=== PATIENT | female | born 1980 | race Caucasian/White ===

== ENCOUNTER → 2017-08-31 | Outpatient (CLI) | payer OTHER | END | disposition home or self-care (01) | LOC: LABWHC1 09:15 | PROVIDERS: ATTEND Obstetrics & Gynecology | DX: Z34.80 Encounter for supervision of other normal pregnancy, unspecified trimester (principal); Z3A.00 Weeks of gestation of pregnancy not specified | CPT/HCPCS: 36415; 84702 ==

== ENCOUNTER → 2017-09-01 | Outpatient (CLI) | payer OTHER ==
--- NOTE | 2017-09-01 14:03 | US ---
EXAMINATION TYPE: US OB <= 14 wk fetus DATE OF EXAM: 09/01/2017 COMPARISON: NONE CLINICAL HISTORY: O46.91 BLEEDING,SPOTTING. EXAM PERFORMED: Transabdominal (TA) EXAM MEASUREMENTS: GESTATIONAL AGE / DATING Physician Established: not established Dates by LMP: (7 weeks/2 days) EDC: 04/18/2018 Dates by First Scan: this is first scan Dates by Current Scan for: (7 weeks/3 days) EDC: 04/17/2018 MATERNAL ANATOMY Uterus: 11.7 x 5.9 x 7.4 cm Right Ovary: 3.5 x 2.9 x 1.8 cm Left Ovary: 3.4 x 2.7 x 1.7 cm Post CDS / Adnexa: wnl Presence of free fluid: no free fluid Presence of corpus luteal cyst: rt ovary measures 1.7 x 2.0 x 1.3 cm Presence of subchorionic bleed: Very small approximately 5% of the gestational sac diameter GESTATION / SURVEY CRL: 1.2 cm (7 weeks/3 days) Yolk Sac (normal less than 6mm): 0.4 cm Heart Rate: 152 bpm Rhythm: Normal IUP: Live IUP Date of LMP: 07/12/2017 Live IUP that correlates with LMP. IMPRESSION: 1. Small subchorionic hemorrhage approximately 5% of the gestational sac diameter. 2. Single live intrauterine with a sonographic age of 7 weeks and 3 days and estimated da te of delivery of 04/17/2018, concordant with menstrual age.
== END | disposition home or self-care (01) ==
LOC: RADUSWWP 13:02
PROVIDERS: ATTEND Obstetrics & Gynecology
DX: O46.91 Antepartum hemorrhage, unspecified, first trimester (principal); Z3A.01 Less than 8 weeks gestation of pregnancy
CPT/HCPCS: 76801

== ENCOUNTER 2018-04-13 08:00 | Inpatient (IN) | payer OTHER ==
--- NOTE | 2018-04-17 09:56 | P.HPOB ---
History of Present Illness H&P Date: 04/17/18 Chief Complaint: Induction of labor This is a 37-year-old female 4 para 2 with an estimated date of confinement of 04/18/2018, estimated gestational age of 40-0/7 weeks, who presents to labor and delivery for induction of labor. course has been essentially uncomplicated. Baby was noted to be transverse at 37 weeks however at 38 weeks baby was noted to be in the vertex presentation. She admits to good movement and denies any rupture of membranes. labs: Toxoplasma-negative Random glucose-86 Hepatitis B surface antigen-negative Rubella-immune Blood type-O+ Antibody screen-negative RPR-nonreactive HIV-nonreactive Hemoglobin-14.3 GC/chlamydia-negative One hour Glucola-66 Group B streptococcus-negative Obstetrical history: . History of 2 vaginal deliveries at term. Her second delivery was a vacuum extraction for a 9 lbs. 1 oz. . She has a history of 1 miscarriage that did not require D&C. Gynecologic history: No history of sexual transmitted diseases. Social history: She is engaged. She is not working outside of the home. Review of Systems Constitutional: Denies chills, Denies fever Eyes: denies blurred vision, denies pain Ears, nose, mouth and throat: Denies headache, Denies sore throat Cardiovascular: Denies chest pain, Denies shortness of breath Respiratory: Denies cough Gastrointestinal: Reports abdominal pain (Irregular contractions) Genitourinary: Reports pelvic pain, Reports Integumentary: Denies pruritus, Denies rash Neurological: Denies numbness, Denies weakness Past Medical History Past Medical History: No Reported History Additional Past Surgical History / Comment(s): LEEP-2003 Past Psychological History: No Psychological Hx Reported Smoking Status: Current every day smoker Past Alcohol Use History: None Reported Past Drug Use History: None Reported Medications and Allergies Home Medications Medication Instructions Recorded Confirmed Type Pnv,Calcium 72/Iron/Folic Acid 1 each PO 04/17/18 History [ Plus Tablet] Allergies Allergy/AdvReac Type Severity Reaction Status Date / Time No Known Allergies Allergy Verified 04/17/18 09:53 Exam Osteopathic Statement: *. No significant issues noted on an osteopathic structural exam other than those noted in the History and Physical/Consult. HEENT: Within normal limits line heart: Regular rate and rhythm Lungs: Clear to auscultation bilaterally Abdomen: , nontender Cervix: 1-1/2 cm/70%/-2 heart tones: 120s by Doppler Extremities: Negative Homans Assessment and Plan (1) 40 weeks gestation of Status: Acute Code(s): Z3A.40 - 40 WEEKS GESTATION OF SNOMED Code( s): 97082638 (2) Advanced maternal age (AMA) in Status: Acute Code(s): URC5233 - SNOMED Code(s): 595789051 Plan: Proceed with oxytocin induction of labor. Expectant management. Epidural anesthesia if desired.
[2018-04-18] MEDS ORDERED: METHYLERGONOVINE 0.2 MG/ML 1 ML AMP IM PRN (06:39)
[2018-04-18] MEDS ORDERED: OXYTOCIN 10 UNIT/ML 1 ML VIAL IM PRN (06:39)
[2018-04-18] MEDS ORDERED: TERBUTALINE 1 MG/ML VIAL SQ PRN (06:39)
[2018-04-18] MEDS ORDERED: CARBOPROST TROMETHAMINE 250 MCG/ML 1 ML AMP IM PRN (06:39)
[2018-04-18] MEDS ORDERED: LIDOCAINE 1% 20 ML VIAL (10MG/ML) FOR IV START INTRADERMA PRN (06:39)
[2018-04-18] MEDS ORDERED: LIDOCAINE 0.5% (PF) 5 MG/ML (50 ML SDV) SQ PRN (06:39)
[2018-04-18] MEDS ORDERED: OXYTOCIN 20 UNITS/1000 ML NS 1,000 ML IV SCH ×2 (06:39→16:57)
[2018-04-18 07:00] VITALS: BMI 27.2
[2018-04-18] MEDS: LACTATED RINGERS 1,000 ML IV SCH ×3 (07:01→15:09)
[2018-04-18 07:21] LABS: Basophils % (A) 0 %; Eosinophils # (A) 0.1 k/uL (0-0.7); Eosinophils % (A) 1 %; HCT 37.5 % (34.0-46.0); HGB 12.9 gm/dL (11.4-16.0); Lymphocytes # (A) 1.8 k/uL (1.0-4.8); Lymphocytes % (A) 19 %; MCH 31.8 pg (25.0-35.0); MCHC 34.4 g/dL (31.0-37.0); MCV 92.5 fL (80.0-100.0); Mean Platelet Volume 7.7; Monocytes # (A) 0.4 k/uL (0-1.0); Monocytes % (A) 5 %; Neutrophils # (A) 6.8 k/uL (1.3-7.7); Neutrophils % (A) 74 %; Platelet Count 160 k/uL (150-450); RBC 4.05 m/uL (3.80-5.40); RDW 13.7 % (11.5-15.5); WBC 9.2 k/uL (3.8-10.6)
[2018-04-18] MEDS ORDERED: ROPIVACAINE 100 MG, fentaNYL (PF) 200 MCG in SODIUM CHLORIDE 0.9% 76 ML EPIDURAL ONE (11:49)
--- NOTE | 2018-04-18 16:47 | P.PROBDLV ---
Vaginal Delivery Note - . Vaginal Delivery Note: The patient progressed to complete dilation after oxytocin induction of labor and artificial rupture membranes with clear fluid noted. She did receive epidural anesthesia. Once reaching complete dilation, she began pushing. Infant's head came to a crown and then delivered and a straight OPD position across the perineum along with the anterior arm. Nose and mouth were bulb suctioned. With one further push, the delivered reducing the nuchal cord times one around the body with delivery. Nose and mouth are bulb suctioned after delivery and infant was placed on mother's abdomen. Cord was clamped and cut and was taken to warmer for evaluation. A viable male was noted with scores of 8 at 1 minute and 9 at 5 minutes and infant weight was 8 lbs. 3 oz. Placenta delivered shortly thereafter, intact, with a three-vessel cord. Uterus contracted well after oxytocin was given and uterine massage was carried out. Inspection the perineum revealed a small first -degree perineal laceration. This area was anesthetized with 1% lidocaine and then sutured with 3-0 Vicryl suture in a running locked fashion. Estimated blood loss is approximately 150 mL's. Both mother and are in stable condition.
[2018-04-18] MEDS ORDERED: diphenhydrAMINE 50 MG/ML 1 ML VIAL IVP PRN ×2 (16:57)
[2018-04-18] MEDS ORDERED: ZOLPIDEM 5 MG TAB PO PRN (16:57)
[2018-04-18] MEDS ORDERED: LANOLIN CREAM 5 GM TUBE TOPICAL PRN (16:57)
[2018-04-18] MEDS ORDERED: BENZOCAINE/MENTHOL SPRAY 1 GM/SPRAY AEROSOL TOPICAL PRN (16:57)
[2018-04-18] MEDS ORDERED: WITCH HAZEL 1 EACH MED..PAD TOPICAL PRN (16:57)
[2018-04-18] MEDS ORDERED: diphenhydrAMINE 50 MG CAP PO PRN (16:57)
[2018-04-18] MEDS ORDERED: diphenhydrAMINE 25 MG CAP PO PRN (16:57)
[2018-04-18] MEDS ORDERED: HYDROCORTISONE 2.5% RECTAL CREAM 30 GM TUBE RECTAL PRN (16:57)
[2018-04-18] MEDS ORDERED: SIMETHICONE 80 MG CHEWABLE PO PRN (16:57)
[2018-04-18] MEDS: SENNOSIDES-DOCUSATE SODIUM 1 EACH TAB PO SCH (20:51)
[2018-04-18] MEDS: IBUPROFEN 600 MG TAB PO PRN (20:51)
[2018-04-19] MEDS: IBUPROFEN 600 MG TAB PO PRN ×3 (03:23→15:03)
[2018-04-19] MEDS: ACETAMINOPHEN TAB 325 MG TAB PO PRN ×3 (03:24→12:07)
[2018-04-19 03:41] VITALS: TEMP 97.9
[2018-04-19] MEDS: SENNOSIDES-DOCUSATE SODIUM 1 EACH TAB PO SCH (08:04)
--- NOTE | 2018-04-19 08:56 | P.DS ---
Providers Date of admission: 04/18/18 06:25 Expected date of discharge: 04/19/18 Attending physician: Vijaya Melgar Primary care physician: Stated None - Discharge Diagnosis(es) (1) 40 weeks gestation of Current Visit: No Status: Acute (2) Advanced maternal age (AMA) in Current Visit: No Status: Acute Hospital Course: This is a 37-year-old female 4 para 2 at 40-0/7 weeks who presented for induction of labor. She underwent oxytocin induction of labor and delivered vaginally a viable male on 04/18/2018 with scores of 8 at 1 minute and 9 at 5 minutes and infant weight of 8 lbs. 3 oz. Her course has been essentially uncomplicated. She is breast-feeding. Lochia is decreasing. Pain is fairly well controlled with ibuprofen and Tylenol. Vital signs are stable. Abdomen is soft with fundus firm and nontender. Extremities show negative Homans. Impression is status post vaginal delivery day #1. Plan is to discharge home today. Routine instructions are given. She has a breast pump at home. She will be given a prescription for ibuprofen. She is advised to follow up in the office in 6 weeks for a check. She is advised to call the office if she has any further questions or concerns prior to her appointment time. Procedures: Oxytocin induction of labor Spontaneous vaginal delivery of a viable male on 04/18/2018 Patient Condition at Discharge: Stable Plan - Discharge Summary New Discharge Prescriptions: New Ibuprofen [Motrin] 600 mg PO Q6HR PRN #60 tab PRN Reason: Mild Pain Or Fever >= 100.5 Continue Pnv,Calcium 72/Iron/Folic Acid [ Plus Tablet] 1 each PO DAILY Discharge Medication List Pnv,Calcium 72/Iron/Folic Acid [ Plus Tablet] 1 each PO DAILY 04/17/18 [ History] Ibuprofen [Motrin] 600 mg PO Q6HR PRN #60 tab 04/19/18 [Rx] Follow up Appointment(s)/Referral(s): Vijaya Melgar DO [Doctor of Osteopathic Medicine] - 6 Weeks Activity/Diet/Wound Care/Special Instructions: Instructions 1. Do not begin any exercise program for 3 weeks. 2. Do not resume sexual relations for 3 weeks or longer if uncomfortable. 3. You may take tub baths or showers at any time. 4. You may use tampons if desired after 3 weeks. 5. Keep the area of episiotomy (stitches) clean and dry. 6. If you are not nursing, wear a good fitting, supportive bra during the day and limit fluid intake for at least 1 week to prevent breast engorgement. 7. Call the office, [phone], within the next week to make appointment for your 6 week checkup if it has not already been made. 8. Report any of the following occurrences to the doctor promptly: a. Heavy, excessive bleeding b. Chills, fever c. Burning or frequency of urination d. Pain or redness and breasts if nursing e. Increasing pain or swelling in episiotomy (stitches). In addition to the above instructions, the following additional should be followed: 1. No heavy lifting or straining (exercising) until after 6 week checkup. 2. Keep abdominal incision clean and dry: You may wear a dressing if more comfortable. 3. Make office appointment for 10 days after going home or as instructed by her doctor. Discharge Disposition: HOME SELF-CARE
[2018-04-19 09:17] VITALS: BP 92/68; PULSE 70
[2018-04-19 09:56] LABS: Basophils % (A) 0 %; Eosinophils # (A) 0.1 k/uL (0-0.7); Eosinophils % (A) 1 %; HCT 32.8 % (34.0-46.0); HGB 11.5 gm/dL (11.4-16.0); Lymphocytes # (A) 1.4 k/uL (1.0-4.8); Lymphocytes % (A) 14 %; MCH 32.2 pg (25.0-35.0); MCHC 35.1 g/dL (31.0-37.0); Mean Platelet Volume 8.2; Monocytes # (A) 0.5 k/uL (0-1.0); Monocytes % (A) 5 %; Neutrophils # (A) 7.7 k/uL (1.3-7.7); Neutrophils % (A) 79 %; Platelet Count 143 k/uL (150-450); RBC 3.57 m/uL (3.80-5.40); RDW 13.8 % (11.5-15.5); WBC 9.7 k/uL (3.8-10.6)
[2018-04-19 18:24] VITALS: RESP 18
== END 2018-04-19 17:15 | disposition home or self-care (01) | DRG 807 ==
LOC: 4FBP 04-18 06:25
PROVIDERS: ADMIT Obstetrics & Gynecology; ATTEND Obstetrics & Gynecology
PROC: 10E0XZZ Delivery of Products of Conception, External Approach (ICD-10-PCS; principal; 2018-04-18)
PROC: 0HQ9XZZ Repair Perineum Skin, External Approach (ICD-10-PCS; 2018-04-18)
PROC: 10907ZC Drainage of Amniotic Fluid, Therapeutic from Products of Conception, Via Natural or Artificial Opening (ICD-10-PCS; 2018-04-18)
PROC: 3E033VJ Introduction of Other Hormone into Peripheral Vein, Percutaneous Approach (ICD-10-PCS; 2018-04-18)
PROC: 00HU33Z Insertion of Infusion Device into Spinal Canal, Percutaneous Approach (ICD-10-PCS; 2018-04-18)
PROC: 3E0R3BZ Introduction of Anesthetic Agent into Spinal Canal, Percutaneous Approach (ICD-10-PCS; 2018-04-18)
DX: O69.81X0 Labor and delivery complicated by cord around neck, without compression, not applicable or unspecified (principal); Z37.0 Single live birth; O99.334 Smoking (tobacco) complicating childbirth; F17.200 Nicotine dependence, unspecified, uncomplicated; O70.0 First degree perineal laceration during delivery; Z3A.40 40 weeks gestation of pregnancy
CPT/HCPCS: 85025; 86850; 86900; 86901

== ENCOUNTER → 2018-08-22 | Outpatient (CLI) | payer OTHER | END | disposition home or self-care (01) | LOC: LABWHC1 10:41 | PROVIDERS: ATTEND Obstetrics & Gynecology | DX: N92.6 Irregular menstruation, unspecified (principal) | CPT/HCPCS: 36415; 84702 ==

== ENCOUNTER → 2020-05-17 | Outpatient (CLI) | payer BC, OTHER | END | disposition home or self-care (01) | LOC: LABWHC1 08:24 | PROVIDERS: ATTEND Obstetrics & Gynecology | DX: O20.0 Threatened abortion (principal); Z3A.00 Weeks of gestation of pregnancy not specified | CPT/HCPCS: 36415; 84702 ==

== ENCOUNTER → 2020-05-20 | Outpatient (CLI) | payer BC | END | disposition home or self-care (01) | LOC: LABWHC1 08:37 | PROVIDERS: ATTEND Obstetrics & Gynecology | DX: O20.0 Threatened abortion (principal) | CPT/HCPCS: 36415; 84702 ==

== ENCOUNTER → 2020-10-16 | Outpatient (CLI) | payer BC ==
--- NOTE | 2020-10-16 09:29 | MM ---
Reason for exam: screening (asymptomatic). Baseline mammogram. History: Family history of breast cancer in 3 paternal aunts. Physical Findings: Nurse did not find any significant physical abnormalities on exam. MG 3D Screening Mammo W/Cad Bilateral CC and MLO view(s) were taken. The breast tissue is extremely dense which could obscure a lesion on mammography. Benign calcifications. There is no discrete abnormality. These results were verbally communicated with the patient and result sheet given to the patient on 10/16/20. ASSESSMENT: Benign, BI-RAD 2 RECOMMENDATION: Routine screening mammogram of both breasts in 1 year.
== END | disposition home or self-care (01) ==
LOC: RADMAMWWP 07:41
PROVIDERS: ATTEND Obstetrics & Gynecology
DX: Z12.31 Encounter for screening mammogram for malignant neoplasm of breast (principal); Z80.3 Family history of malignant neoplasm of breast
CPT/HCPCS: 77063; 77067

== ENCOUNTER → 2021-12-10 | Outpatient (CLI) | payer BC ==
--- NOTE | 2021-12-11 08:04 | MM ---
Reason for Exam: Screening (asymptomatic). Last mammogram was performed 1 year(s) and 1 month(s) ago. Patient History: Menarche at age 13. First Full-Term at age 21. Paternal aunt (tony) had breast cancer, age 63. Paternal aunt (ce) had breast cancer, age 65. Paternal aunt (leandro) had breast cancer, age 64. Last menstrual period: 12/03/2021 Risk Values: Naz 5 year model risk: 0.5%. NCI Lifetime model risk: 9.0%. Prior Study Comparison: 10/16/2020 Bilateral Screening Mammogram, [facility]. Tissue Density: The breast tissue is extremely dense which could obscure a lesion on mammography. Findings: Analyzed By CAD. There is no suspicious group of microcalcifications or new suspicious mass in either breast. Overall Assessment: Negative, BI-RAD 1 Management: Screening Mammogram of both breasts in 1 year. A clinical breast exam by your physician is recommended on an annual basis and results should be correlated with mammographic findings. Electronically signed and approved by: Weston Magallon M.D. Radiologis
== END | disposition home or self-care (01) ==
LOC: RADMAMWWP 08:06
PROVIDERS: ATTEND Obstetrics & Gynecology
DX: Z12.31 Encounter for screening mammogram for malignant neoplasm of breast (principal); Z80.3 Family history of malignant neoplasm of breast
CPT/HCPCS: 77063; 77067

== ENCOUNTER 2023-06-04 06:11 | Inpatient (IN) | payer BC ==
--- NOTE | 2023-06-03 12:58 | P.HPOB ---
History of Present Illness H&P Date: 06/03/23 Chief Complaint: urinary tract dilatation, low amniotic fluid This is a 42 y.o. female, 6, para 3023, with an estimated date of confinement of 06/19/2023, estimated gestational age of 37-6/7 weeks, who presents for induction of labor due to urinary tract dilatation and decreasing amniotic fluid. She is feeling good movement. She was seen by MFM at 20 weeks and was noted to have urinary tract dilatation at that time. She has been doing regular growth ultrasounds to follow the dilatation and most recently the right renal pelvis measured 41 mm and the left measured 11 mm. Her amniotic fluid did decrease from 9.54 cm to 6.62 cm in 1 week. It had been 15.4 cm on 05/12/2023. I consulted with Dr. Gupta by phone and he recommended delivery in the 37 week due to worsening hydronephrosis and recommended ultrasound of the kidneys within 24 hours after delivery, ensure the baby is urinating, and if ok, outpatient consultation with a pediatric urologist within a couple weeks after delivery. At first, patient wanted to just continue with monitoring with surveillance, but since the fluid has been decreasing, I have recommended that we proceed with delivery since she is beyond 37 weeks. She is feeling irregular contractions. Her last ultrasound showed estimated weight of 7#15oz, greater than 90th percentile. labs: GC/Chlamydia/Trich-neg Blood type-O+ Antibody screen-neg Rubella-immune Toxoplasma-neg RPR-NR HIV-NR Hepatitis C antibody-neg Hepatitis B surface antigen-neg Random glucose-84 1 hr. GTT-69 GBS-neg OB Hx: . 1st child delivered at term, complicated by oligohydramnios, 7#5oz, 2nd child required vacuum-assistance at term, 9#1oz, 3rd child delivered vaginally at term, 8#3oz. She also had 2 miscarriages. Certified Pesticide Applicator Hx: No history of STDs Social Hx: . Works part-time at [employer] Review of Systems Constitutional: Denies chills, Denies fever Eyes: denies blurred vision, denies pain Ears, nose, mouth and throat: Denies headache, Denies sore throat Cardiovascular: Denies chest pain, Denies shortness of breath Respiratory: Denies cough Gastrointestinal: Reports abdominal pain (irregular contractions) Genitourinary: Reports pelvic pain, Reports Musculoskeletal: Reports low back pain Integumentary: Denies pruritus, Denies rash Neurological: Denies numbness, Denies weakness Psychiatric: Reports anxiety, Denies depression Past Medical History Past Medical History: No Reported History History of Any Multi-Drug Resistant Organisms: None Reported Additional Past Surgical History / Comment(s): LEEP-2004; oral surgery Past Psychological History: No Psychological Hx Reported Smoking Status: Current every day smoker, Light tobacco smoker Past Alcohol Use History: None Reported Past Drug Use History: None Reported - Past Family History Father Family Medical History: No Reported History Son(s) Family Medical History: Cancer (lymphoma) Medications and Allergies Home Medications Medication Instructions Recorded Confirmed Type Vit No.180/Iron/Folic 1 each PO DAILY 04/17/18 04/18/18 History [ Plus Vitamin-Mineral] Allergies Allergy/AdvReac Type Severity Reaction Status Date / Time No Known Allergies Allergy Verified 04/18/18 06:37 Exam Osteopathic Statement: *. No significant issues noted on an osteopathic structural exam other than those noted in the History and Physical/Consult. HEENT: within normal limits Heart: regular rate and rhythm Lungs: clear to auscultation bilaterally Abdomen: , non-tender heart tones: 140's by doppler Cervix: 1 cm/70%/-2 Extremities: negative Abebe's. Assessment and Plan (1) 37 weeks gestation of Status: Acute Code(s): Z3A.37 - 37 WEEKS GESTATION OF SNOMED Code(s): 98511603 (2) hydronephrosis in , antepartum condition Status: Acute Code(s): O35.EXX0 - MAT CARE OTHER ABNLT AND DAMAGE, ANOMAL, UNSP SNOMED Code(s): 241939285 (3) Oligohydramnios Status: Acute Code(s): O41.00X0 - OLIGOHYDRAMNIOS, UNSP TRIMESTER, NOT APPLICABLE OR UNSP SNOMED Code(s): 71677102 Plan: Will proceed with oxytocin induction of labor. Epidural anesthesia if desired. Expectant management. Will notify pediatrics.
[2023-06-04] MEDS ORDERED: METHYLERGONOVINE 0.2 MG/ML 1 ML AMP IM PRN (06:25)
[2023-06-04] MEDS ORDERED: LIDOCAINE 0.5% (PF) 5 MG/ML (50 ML SDV) SQ PRN (06:25)
[2023-06-04] MEDS ORDERED: TERBUTALINE 1 MG/ML VIAL SQ PRN (06:25)
[2023-06-04] MEDS ORDERED: TRANEXAMIC 1,000 MG/100ML-NACL 1,000 MG in EMPTY BAG 1 BAG IV PRN (06:25)
[2023-06-04] MEDS ORDERED: CARBOPROST TROMETHAMINE 250 MCG/ML 1 ML AMP IM PRN (06:25)
[2023-06-04] MEDS ORDERED: OXYTOCIN 10 UNIT/ML 1 ML VIAL IM PRN (06:25)
[2023-06-04] MEDS ORDERED: OXYTOCIN 30 UNITS/500 ML NS 30 UNIT in SALINE 1 500ML.BAG IV SCH (06:25)
[2023-06-04] MEDS ORDERED: miSOPROStoL 200 MCG TAB PO PRN (06:25)
[2023-06-04] MEDS ORDERED: LIDOCAINE 1% (10MG/ML) FOR IV START INTRADERMA PRN (06:25)
[2023-06-04] MEDS: LACTATED RINGERS 1,000 ML IV SCH ×3 (06:38→14:57)
[2023-06-04 06:55] LABS: Basophils % (A) 0 %; Eosinophils # (A) 0.1 k/uL (0-0.7); Eosinophils % (A) 2 %; HCT 36.1 % (34.0-46.0); HGB 12.5 gm/dL (11.4-16.0); Lymphocytes # (A) 1.7 k/uL (1.0-4.8); Lymphocytes % (A) 19 %; MCH 31.9 pg (25.0-35.0); MCHC 34.7 g/dL (31.0-37.0); MCV 91.8 fL (80.0-100.0); Monocytes # (A) 0.5 k/uL (0-1.0); Monocytes % (A) 5 %; Neutrophils # (A) 6.4 k/uL (1.3-7.7); Neutrophils % (A) 72 %; Platelet Count 158 k/uL (150-450); RBC 3.93 m/uL (3.80-5.40); RDW 13.5 % (11.5-15.5)
[2023-06-04] MEDS ORDERED: SODIUM CHLORIDE 0.9% 250 ML BAG ONE (13:03)
[2023-06-04] MEDS ORDERED: fentaNYL (PF) 50 MCG/ML 5 ML AMP ONE (13:03)
[2023-06-04] MEDS ORDERED: ROPIVACAINE 5 MG/ML 30 ML VIAL ONE (13:03)
--- NOTE | 2023-06-04 17:31 | P.PROBDLV ---
Vaginal Delivery Note - . Vaginal Delivery Note: The patient progressed to complete dilation after oxytocin induction of labor and artificial rupture of membranes with clear fluid noted. She did receive epidural anesthesia. Once reaching complete, she pushed for a few pushes and infant's head came to a crown. 's head delivered across the perineum followed by the anterior shoulder. Nose and mouth were bulb suctioned. With one further push, the remainder of the infant easily delivered and was placed on mother's abdomen. Cord was allowed to finish pulsating and then was clamped and cut. A viable female was noted with scores of 9 at 1 minute and 9 at 5 minutes and weight of 7 lbs. 8 oz. did urinate shortly after delivery. Placenta delivered shortly thereafter, intact, with a three-vessel cord. Uterus contracted well after oxytocin was given and uterine massage was carried out. Inspection of the perineum revealed a small first-degree perineal laceration. This area was anesthetized with 1% lidocaine and then sutured with 3-0 Vicryl suture in a running locked fashion. Estimated blood loss is approximately 150 mL's. Both mother and are in stable condition. Placenta will be sent to pathology due to urinary tract dilation.
[2023-06-04] MEDS ORDERED: SIMETHICONE 80 MG CHEWABLE PO PRN (17:35)
[2023-06-04] MEDS ORDERED: ACETAMINOPHEN TAB 325 MG TAB PO PRN (17:35)
[2023-06-04] MEDS ORDERED: HYDROCORTISONE 2.5% RECTAL CREAM 30 GM TUBE RECTAL PRN (17:35)
[2023-06-04] MEDS ORDERED: IBUPROFEN 600 MG TAB PO PRN (17:35)
[2023-06-04] MEDS ORDERED: diphenhydrAMINE 50 MG CAP PO PRN (17:35)
[2023-06-04] MEDS ORDERED: LANOLIN CREAM 5 GM TUBE TOPICAL PRN (17:35)
[2023-06-04] MEDS ORDERED: ZOLPIDEM 5 MG TAB PO PRN (17:35)
[2023-06-04] MEDS ORDERED: BENZOCAINE/MENTHOL SPRAY 1 GM/SPRAY AEROSOL TOPICAL PRN (17:35)
[2023-06-04] MEDS ORDERED: diphenhydrAMINE 25 MG CAP PO PRN (17:35)
[2023-06-04] MEDS ORDERED: diphenhydrAMINE 50 MG/ML 1 ML VIAL IVP PRN ×2 (17:35)
[2023-06-04] MEDS: SENNOSIDES-DOCUSATE SODIUM 1 EACH TAB PO SCH (20:20)
[2023-06-05 05:30] VITALS: RESP 18
[2023-06-05 08:11] LABS: Basophils % (A) 0 %; Eosinophils # (A) 0.1 k/uL (0-0.7); Eosinophils % (A) 1 %; HCT 31.7 % (34.0-46.0); Lymphocytes # (A) 0.3 k/uL (1.0-4.8); Lymphocytes % (A) 5 %; MCH 31.8 pg (25.0-35.0); MCHC 34.6 g/dL (31.0-37.0); MCV 91.8 fL (80.0-100.0); Monocytes # (A) 0.4 k/uL (0-1.0); Monocytes % (A) 6 %; Neutrophils # (A) 6.2 k/uL (1.3-7.7); Neutrophils % (A) 87 %; Platelet Count 124 k/uL (150-450); RBC 3.46 m/uL (3.80-5.40); RDW 13.4 % (11.5-15.5); WBC 7.1 k/uL (3.8-10.6)
[2023-06-05] MEDS: SENNOSIDES-DOCUSATE SODIUM 1 EACH TAB PO SCH (08:27)
[2023-06-05] MEDS ORDERED: PRENATAL VIT-IRON-FOLIC ACID 1 EACH TABLET PO SCH (09:00)
--- NOTE | 2023-06-05 09:55 | P.PNOBGVD ---
Subjective - Subjective Principal diagnosis: Status post vaginal delivery day #1 Interval history: Patient is doing well. She is ambulating. Lochia is decreasing. She does have cramping when baby breast feeds but otherwise has been okay. Baby is being monitored by pediatrics for continued urinary tract dilation. The initially wanted to transfer but patient wants the baby to stay here if possible. Pediatrics has spoken with [facility] nephrology who agrees with the plan as long as nothing worsens. She is breast-feeding well. Patient reports: Reports appetite normal, Reports voiding normally, Reports pain well controlled, Reports ambulating normally [place]: nursing well Objective - Latest Vital Signs Latest vital signs: Vital Signs Temp Pulse Resp BP 06/05/23 04:00 99 F 87 18 112/69 06/05/23 00:00 98.5 F 80 16 117/63 06/04/23 19:24 97.9 F 81 18 128/74 06/04/23 18:54 82 17 124/59 06/04/23 18:24 80 17 131/61 06/04/23 18:09 69 17 124/62 06/04/23 17:54 78 17 120/63 06/04/23 17:39 96.9 F L 87 17 115/58 06/04/23 17:24 80 17 123/58 Intake and Output 06/04/23 06/05/23 06/05/23 22:59 06:59 14:59 Intake Total 1788.3 Output Total 434 Balance 1354.3 Intake: IV 1000 Intake, IV Titration 188.3 Amount Oxytocin 30 Units/500 ml 188.3 Ns 30 unit In Saline 1 500ml.bag @ Per Protocol IV .Q0M [facility] Rx#:[id number] Oral 600 Output: Output, Quantitative 434 Blood Loss Other: # Voids 1 1 - Exam Extremities: Present: normal. Absent: tenderness Abdomen: Present: normal appearance, soft. Absent: distention, tenderness Uterus: Present: normal, firm. Absent: tenderness - Labs Labs: Abnormal Lab Results - Last 24 Hours (Table) 06/05/23 Range/Units 07:28 RBC 3.46 L (3.80-5.40) m/uL Hgb 11.0 L (11.4-16.0) gm/dL Hct 31.7 L (34.0-46.0) % Plt Count 124 L (150-450) k/uL Lymphocytes # 0.3 L (1.0-4.8) k/uL Assessment and Plan Assessment: Status post vaginal delivery day #1 (1) 37 weeks gestation of Current Visit: No Status: Acute Code(s): Z3A.37 - 37 WEEKS GESTATION OF SNOMED Code(s): 69481218 (2) hydronephrosis in , antepartum condition Current Visit: No Status: Acute Code(s): O35.EXX0 - MAT CARE OTHER ABNLT AND DAMAGE, ANOMAL, UNSP SNOMED Code(s): 018453872 (3) Oligohydramnios Current Visit: No Status: Acute Code(s): O41.00X0 - OLIGOHYDRAMNIOS, UNSP TRIMESTER, NOT APPLICABLE OR UNSP SNOMED Code(s): 77047443 Plan: Continue care. Anticipate discharge tomorrow or earlier. If she does go home today, she does state she has ibuprofen and Tylenol at home and has a breast pump at home. If she does go home today, she does know to follow up in the office in 6 weeks for check.
[2023-06-05 14:06] LABS: African American GFR (CKD) >90 (>60 ml/min/1.73 sqM); Blood Urea Nitrogen 7 mg/dL (7-17); Non-African American GFR(CKD) >90 (>60 ml/min/1.73 sqM)
[2023-06-05 19:13] VITALS: BP 121/71; PULSE 95; TEMP 98.6
--- NOTE | 2023-06-08 08:52 | P.DS ---
Providers Date of admission: 06/04/23 06:11 Expected date of discharge: 06/05/23 Attending physician: Vijaya Melgar Primary care physician: Stated None - Discharge Diagnosis(es) (1) 37 weeks gestation of Status: Acute (2) hydronephrosis in , antepartum condition Status: Acute (3) Oligohydramnios Status: Acute Hospital Course: This was a 42-year-old female 6 para 3 who underwent oxytocin induction of labor. She delivered a viable female infant on 06/04/2023 with scores of 9 at 1 minute and 9 at 5 minutes and infant weight of 7 lbs. 8 oz. Her course was essentially uncomplicated. Her lochia was decreasing. Pain was well controlled. Baby was monitored by pediatrics and did have hydronephrosis. She did make arrangements for follow-up as an outpatient with pediatric urology. Vital signs were stable. Abdomen is soft with fundus firm and nontender. Extremities show negative Homans. She was advised follow-up in the office in 6 weeks for check. She is advised to call the office if she has any further questions or concerns prior to her appointment time. She states she has pain medication at home. Routine instructions are given. Procedures: Oxytocin induction of labor Spontaneous vaginal delivery of a viable female on 06/04/2023 Patient Condition at Discharge: Stable Plan - Discharge Summary New Discharge Prescriptions: No Action Vit No.180/Iron/Folic [ Plus Vitamin-Mineral] 1 each PO DAILY Aspirin [Adult Low Dose Aspirin EC] 1 tablet PO DAILY Discharge Medication List Vit No.180/Iron/Folic [ Plus Vitamin-Mineral] 1 each PO DAILY 04/17/18 [History] Aspirin [Adult Low Dose Aspirin EC] 1 tablet PO DAILY 06/04/23 [History] Follow up Appointment(s)/Referral(s): Vijaya Melgar DO [Doctor of Osteopathic Medicine] - 6 Weeks Activity/Diet/Wound Care/Special Instructions: Instructions 1. Do not begin any exercise program for 3 weeks. 2. Do not resume sexual relations for 3 weeks or longer if uncomfortable. 3. You may take tub baths or showers at any time. 4. You may use tampons if desired after 3 weeks. 5. Keep the area of episiotomy (stitches) clean and dry. 6. If you are not nursing, wear a good fitting, supportive bra during the day and limit fluid intake for at least 1 week to prevent breast engorgement. 7. Call the office, [phone], within the next week to make appointment for your 6 week checkup if it has not already been made. 8. Report any of the following occurrences to the doctor promptly: a. Heavy, excessive bleeding b. Chills, fever c. Burning or frequency of urination d. Pain or redness and breasts if nursing e. Increasing pain or swelling in episiotomy (stitches). In addition to the above instructions, the following additional should be followed: 1. No heavy lifting or straining (exercising) until after 6 week checkup. 2. Keep abdominal incision clean and dry: You may wear a dressing if more comfortable. 3. Make office appointment for 10 days after going home or as instructed by her doctor. Discharge Disposition: HOME SELF-CARE
== END 2023-06-05 18:40 | disposition home or self-care (01) | DRG 806 ==
LOC: 4FBP 06:11
PROVIDERS: ADMIT Obstetrics & Gynecology; ATTEND Obstetrics & Gynecology
PROC: 3E033VJ Introduction of Other Hormone into Peripheral Vein, Percutaneous Approach (ICD-10-PCS; principal; 2023-06-04)
PROC: 0HQ9XZZ Repair Perineum Skin, External Approach (ICD-10-PCS; principal; 2023-06-04)
PROC: 10907ZC Drainage of Amniotic Fluid, Therapeutic from Products of Conception, Via Natural or Artificial Opening (ICD-10-PCS; principal; 2023-06-04)
PROC: 10E0XZZ Delivery of Products of Conception, External Approach (ICD-10-PCS; principal; 2023-06-04)
DX: O41.03X0 Oligohydramnios, third trimester, not applicable or unspecified (principal); N13.30 Unspecified hydronephrosis; Z37.0 Single live birth; O35.EXX0 Maternal care for other (suspected) fetal abnormality and damage, fetal genitourinary anomalies, not applicable or unspecified; O70.0 First degree perineal laceration during delivery; O99.334 Smoking (tobacco) complicating childbirth; F17.200 Nicotine dependence, unspecified, uncomplicated; Z3A.37 37 weeks gestation of pregnancy; Z28.310 Unvaccinated for COVID-19; Z28.21 Immunization not carried out because of patient refusal; Z79.82 Long term (current) use of aspirin
CPT/HCPCS: 82565; 84520; 85025; 86850; 86900; 86901